=== PATIENT | male | born 1945 | race Caucasian/White ===

== ENCOUNTER 2017-08-24 13:24 | Inpatient (IN) | payer OTHER ==
[~2017-08-24] VITALS: Ht 167.6 cm; Wt 90.1 kg
[~2017-08-24 13:24] MED LIST: ALTACE10 MG PO; ALTACE2.5 MG PO; ASPIRIN325 MG PO; ASPIRIN81 M1 PO; Altace PO; CARVEDILOL25 MG PO; CHEWABLE-VITE1 EACH PO; CLOPIDOGREL75 MG PO; CODEINE-GUAIFE120 ML PO; COREG25 M1 PO; COREG6.25 M1 PO; Coreg PO; DIGITEK125 MC2 PO; EPLERENONE25 M1 PO; EPLERENONE25 MG PO; FUROSEMIDE40 MG PO; Glucophage PO; INSPRA PO; INSPRA25 MG PO; IRON325 M1 PO; K-Dur PO; LANOXIN125 MCG PO; LASIX20 MG PO; LASIX40 MG PO; LIPITOR80 MG PO; LISINOPRIL2.5 MG PO; Lanoxin,Digitek PO; Lasix PO; Lipitor PO; METAMUCIL POWD798 GM PO; METFORMIN HCL500 MG PO; MULTI VITAMIN1 EACH PO; NITROSTAT,NITR0.4 M1 SL; Nitrostat,NitroQuick SL; PROVENTIL,2.5 MG/3 M IH; SPIRIVA1 INHALATI; SPIRIVA1 INHALATI IH; TYLENOL EXTRA500 MG PO; TYLENOL REGULA325 MG PO; Tylenol Regular Stre PO; WARFARIN SODIUM1 MG PO; XARELTO10 MG PO; Xarelto PO
[2017-08-24 13:59] LABS: HEMATOCRIT 50.1 % (38.0-50.0); HEMOGLOBIN 16.2 G/DL (12.5-16.6); MCH 29.1 PG (29.0-34.0); MCHC 32.3 G/DL (30.0-36.0); MCV 90.1 FL (86-99); PLATELET COUNT 226 K/uL (156-360); RBC DIS.WIDTH-CV 17.1 % (11.8-14.6); RBC DIS.WIDTH-SD 55.5 % (39-53); RED BLOOD COUNT 5.56 M/uL (4.00-5.50); WHITE BLOOD COUNT 9.5 K/uL (4.1-10.2)
[2017-08-24 14:08] LABS: CHLORIDE 97 mEq/L (99-109); SODIUM 122 mEq/L (136-147)
[2017-08-24 14:10] LABS: GLUCOSE 96 mg/dL (70-99)
[2017-08-24 14:14] LABS: CREATININE 1.7 mg/dL (0.6-1.3); GFR ESTIMATE (CALCULATED) 42 mL/min/ (58.99-99999)
[2017-08-24 14:15] LABS: UREA NITROGEN (BUN) 44 mg/dL (9-23)
[2017-08-24 14:20] LABS: POTASSIUM 6.6 mEq/L (3.7-5.4); TROP-I INTERPRETATION NEGATIVE; TROPONIN-I 0.02 ng/mL (0.0-0.30)
[2017-08-24 17:14] LABS: CHLORIDE 98 mEq/L (99-109); SODIUM 122 mEq/L (136-147)
[2017-08-24 17:19] LABS: CREATININE 1.5 mg/dL (0.6-1.3); GFR ESTIMATE (CALCULATED) 49 mL/min/ (58.99-99999)
[2017-08-24 17:20] LABS: UREA NITROGEN (BUN) 44 mg/dL (9-23)
[2017-08-24 17:32] LABS: GLUCOSE 50 mg/dL (70-99); POTASSIUM 6.6 mEq/L (3.7-5.4)
[2017-08-24] MEDS ORDERED: MILK OF MAGN PO (18:45)
[2017-08-24] MEDS ORDERED: TYLENOL ARTHRI650 MG PO (18:46)
[2017-08-24 21:25] VITALS: BP 94/55
[2017-08-24 22:01] LABS: CHLORIDE 101 MEQ/L (99-109); POTASSIUM 5.5 MEQ/L (3.7-5.4); SODIUM 124 MEQ/L (136-147)
[2017-08-24 22:06] LABS: CREATININE 1.6 MG/DL (0.6-1.3); GFR ESTIMATE (CALCULATED) 46 mL/min/ (58.99-99999); GLUCOSE 90 mg/dL (70-99); UREA NITROGEN (BUN) 43 mg/dL (9-23)
[2017-08-24 22:53] LABS: INTER. NORMALIZED RATIO 2.3
[2017-08-25] VITALS (7 sets, daily range): BP systolic 78–100; BP diastolic 48–59
[2017-08-25 08:50] LABS: ALBUMIN 2.4 G/DL (3.2-4.8); CHLORIDE 100 MEQ/L (99-109); CREATININE 1.4 MG/DL (0.6-1.3); GFR ESTIMATE (CALCULATED) 53 mL/min/ (58.99-99999); GLUCOSE 85 mg/dL (70-99); PHOSPHORUS 5.2 mg/dL (2.5-4.9); POTASSIUM 4.6 MEQ/L (3.7-5.4); SODIUM 127 MEQ/L (136-147); UREA NITROGEN (BUN) 40 mg/dL (9-23); URIC ACID 7.5 mg/dL (3.1-9.2)
[2017-08-25 16:33] LABS: HEMATOCRIT 44.9 % (38.0-50.0); HEMOGLOBIN 14.3 G/DL (12.5-16.6); MCH 29.4 PG (29.0-34.0); MCHC 31.8 G/DL (30.0-36.0); MCV 92.2 FL (86-99); PLATELET COUNT 218 K/uL (156-360); RBC DIS.WIDTH-CV 17.1 % (11.8-14.6); RBC DIS.WIDTH-SD 57.4 % (39-53); RED BLOOD COUNT 4.87 M/uL (4.00-5.50); WHITE BLOOD COUNT 7.6 K/uL (4.1-10.2)
[2017-08-25 16:56] LABS: CHLORIDE 100 MEQ/L (99-109); CREATININE 1.6 MG/DL (0.6-1.3); GFR ESTIMATE (CALCULATED) 46 mL/min/ (58.99-99999); POTASSIUM 4.6 MEQ/L (3.7-5.4); SODIUM 126 MEQ/L (136-147); UREA NITROGEN (BUN) 45 mg/dL (9-23)
[2017-08-25 16:57] LABS: GLUCOSE 113 mg/dL (70-99)
[2017-08-26 03:24] VITALS: BP 82/52
[2017-08-26 06:50] VITALS: BP 86/52
[2017-08-26 06:52] LABS: ALBUMIN 2.2 G/DL (3.2-4.8); CHLORIDE 99 MEQ/L (99-109); CREATININE 1.6 MG/DL (0.6-1.3); GFR ESTIMATE (CALCULATED) 46 mL/min/ (58.99-99999); GLUCOSE 105 mg/dL (70-99); PHOSPHORUS 5.1 mg/dL (2.5-4.9); POTASSIUM 4.1 MEQ/L (3.7-5.4); SODIUM 130 MEQ/L (136-147); UREA NITROGEN (BUN) 43 mg/dL (9-23)
[2017-08-26 07:38] LABS: INTACT PARATHYROID HORMONE 265 pg/mL (10-69)
[2017-08-26 11:45] VITALS: BP 99/57
[2017-08-26 15:45] VITALS: BP 102/55
[2017-08-26 19:21] VITALS: BP 95/58
[2017-08-27 00:17] VITALS: BP 110/66
[2017-08-27 03:50] VITALS: BP 139/66
[2017-08-27 06:13] LABS: INTER. NORMALIZED RATIO 2.1
[2017-08-27 06:39] LABS: ALBUMIN 2.5 G/DL (3.2-4.8); CHLORIDE 99 MEQ/L (99-109); CREATININE 1.3 MG/DL (0.6-1.3); GFR ESTIMATE (CALCULATED) 58 mL/min/ (58.99-99999); GLUCOSE 92 mg/dL (70-99); PHOSPHORUS 3.4 mg/dL (2.5-4.9); POTASSIUM 4.6 MEQ/L (3.7-5.4); SODIUM 129 MEQ/L (136-147); UREA NITROGEN (BUN) 35 mg/dL (9-23); URIC ACID 7.6 mg/dL (3.1-9.2)
[2017-08-27 06:45] VITALS: BP 104/57
[2017-08-27 07:28] VITALS: BP 123/70
[2017-08-27] MEDS ORDERED: DOCUSATE SODIU100 MG PO (13:39)
[2017-08-30] MEDS ORDERED: COREG3.125 M1 PO (14:15)
[2017-08-30] MEDS ORDERED: PROAIR HFA8.5 GM IH (14:16)
[2017-08-30] MEDS ORDERED: PROCTO-MED HC30 GM PR (14:17)
== END 2017-08-27 14:43 | disposition home or self-care (01) | DRG 640 ==
LOC: EME 13:24 → 5EAST 19:18 → EDOF 19:18 → ENRESERV 19:20 → 5EAST 21:13
PROVIDERS: Emergency Medicine; Family Medicine; Internal Medicine Nephrology
DX: E87.1 Hypo-osmolality and hyponatremia (principal); E87.5 Hyperkalemia; I11.0 Hypertensive heart disease with heart failure; I42.9 Cardiomyopathy, unspecified; I50.43 Acute on chronic combined systolic (congestive) and diastolic (congestive) heart failure; N17.9 Acute kidney failure, unspecified; I25.5 Ischemic cardiomyopathy; E83.39 Other disorders of phosphorus metabolism; E88.09 Other disorders of plasma-protein metabolism, not elsewhere classified; I95.9 Hypotension, unspecified; R19.7 Diarrhea, unspecified; I89.0 Lymphedema, not elsewhere classified; R18.8 Other ascites; E86.0 Dehydration; E11.9 Type 2 diabetes mellitus without complications; E78.5 Hyperlipidemia, unspecified; J44.9 Chronic obstructive pulmonary disease, unspecified; I48.91 Unspecified atrial fibrillation; I48.92 Unspecified atrial flutter; E66.9 Obesity, unspecified; I50.810 Right heart failure, unspecified; I25.10 Atherosclerotic heart disease of native coronary artery without angina pectoris; Z95.1 Presence of aortocoronary bypass graft; Z95.810 Presence of automatic (implantable) cardiac defibrillator; Z86.73 Personal history of transient ischemic attack (TIA), and cerebral infarction without residual deficits; Z87.891 Personal history of nicotine dependence; I25.2 Old myocardial infarction; Z68.32 Body mass index [BMI] 32.0-32.9, adult; Z82.49 Family history of ischemic heart disease and other diseases of the circulatory system; Z79.4 Long term (current) use of insulin; Z79.01 Long term (current) use of anticoagulants
CPT/HCPCS: 71045; 71046; 80047; 80048; 80048 91; 80069; 82306; 82948; 83880; 83935; 83970; 84300; 84484; 84550; 84999; 85027; 85610; 93005; 94640; 94640 76; 94799; 99202; 99281; 99285; C1753; J0610; J1940; J7030; J7040; J7042; J7050

== ENCOUNTER → 2017-08-30 | Outpatient (CLI) | payer OTHER ==
[~2017-08-30] MED LIST changes: +COREG3.125 M1 PO; +DOCUSATE SODIU100 MG PO; +MILK OF MAGN PO; +PROAIR HFA8.5 GM IH; +PROCTO-MED HC30 GM PR; +TYLENOL ARTHRI650 MG PO
== END | disposition home or self-care (01) ==
LOC: RAD 13:38 → EDSTATUS 14:00
PROC: 0W993ZZ Drainage of Right Pleural Cavity, Percutaneous Approach (ICD-10-PCS; principal; 2017-08-30)
DX: J90 Pleural effusion, not elsewhere classified (principal)
CPT/HCPCS: 76942

== ENCOUNTER 2017-09-06 15:50 | Inpatient (IN) | payer OTHER ==
[~2017-09-06] VITALS: Ht 167.6 cm; Wt 90.2 kg
[2017-09-06 16:59] LABS: BASOPHIL (%) 0.3 % (0-1); EOSINOPHIL (%) 1.1 % (0-5); EOSINOPHIL COUNT 0.1 K/uL (0-0.3); HEMATOCRIT 43.3 % (38.0-50.0); IMMATURE GRANULOCYTE (%) 0.5 % (0.0-0.7); LYMPHOCYTE (%) 2.8 % (15-42); LYMPHOCYTE COUNT 0.3 K/uL (1.0-2.8); MCH 29.6 PG (29.0-34.0); MCHC 32.3 G/DL (30.0-36.0); MCV 91.5 FL (86-99); MONOCYTE (%) 8.5 % (3-12); MONOCYTE COUNT 0.8 K/uL (0-0.8); NEUTROPHIL (%) 86.8 % (45-76); PLATELET COUNT 231 K/uL (156-360); RBC DIS.WIDTH-CV 16.6 % (11.8-14.6); RBC DIS.WIDTH-SD 55.5 % (39-53); RED BLOOD COUNT 4.73 M/uL (4.00-5.50); WHITE BLOOD COUNT 9.2 K/uL (4.1-10.2)
[2017-09-06 17:07] LABS: ALBUMIN 2.4 g/dL (3.2-4.8); CHLORIDE 98 mEq/L (99-109); SODIUM 127 mEq/L (136-147)
[2017-09-06 17:11] LABS: TOTAL BILIRUBIN 0.8 mg/dL (0.0-1.0)
[2017-09-06 17:13] LABS: ALKALINE PHOSPHATASE 200 IU/L (3-129); CREATININE 1.5 mg/dL (0.6-1.3); GFR ESTIMATE (CALCULATED) 49 mL/min/ (58.99-99999)
[2017-09-06 17:14] LABS: UREA NITROGEN (BUN) 48 mg/dL (9-23)
[2017-09-06 17:15] LABS: AST (GOT) 40 IU/L (2-34)
[2017-09-06 17:16] LABS: ALT (GPT) 53 IU/L (3-49)
[2017-09-06 17:34] LABS: APPEARANCE CLEAR ((CLEAR)); BILIRUBIN NEGATIVE; BLOOD NEGATIVE; COLOR YELLOW ((YELLOW)); GLUCOSE (STRIP) NEGATIVE; KETONES NEGATIVE; LEUKOCYTES NEGATIVE; NITRITE NEGATIVE; PROTEIN (STRIP) NEGATIVE; SPECIFIC GRAVITY 1.018 (1.000-1.030); UCUL ADDED? NO; UROBILINOGEN 0.2 MG/DL (0.2-1.0)
[2017-09-06 17:34] LABS: GLUCOSE 128 mg/dL (70-99)
[2017-09-06] MEDS ORDERED: FUROSEMIDE40 MG PO (19:18)
[2017-09-06] MEDS ORDERED: CARVEDILOL6.25 MG PO (19:18)
[2017-09-06] MEDS ORDERED: ATORVASTATIN CA80 MG PO (19:19)
[2017-09-06] MEDS ORDERED: DIGOX125 MCG PO (19:19)
[2017-09-06] MEDS ORDERED: MIRALAX255 GM PO (19:19)
[2017-09-06] MEDS ORDERED: WARFARIN SODIUM1 MG PO (19:24)
[2017-09-06 20:46] LABS: CHLORIDE 100 mEq/L (99-109); SODIUM 127 mEq/L (136-147)
[2017-09-06 20:48] LABS: GLUCOSE 59 mg/dL (70-99)
[2017-09-06 20:52] LABS: CREATININE 1.4 mg/dL (0.6-1.3); GFR ESTIMATE (CALCULATED) 53 mL/min/ (58.99-99999)
[2017-09-06 20:53] LABS: UREA NITROGEN (BUN) 46 mg/dL (9-23)
[2017-09-06 21:32] LABS: LACTATE DEHYDROGENASE 239 IU/L (20-246)
[2017-09-07] VITALS (7 sets, daily range): BP systolic 86–99; BP diastolic 46–57
[2017-09-07 00:21] LABS: INTER. NORMALIZED RATIO 1.7
[2017-09-07 07:01] LABS: ALBUMIN 1.9 G/DL (3.2-4.8); CHLORIDE 100 MEQ/L (99-109); CREATININE 1.4 MG/DL (0.6-1.3); GFR ESTIMATE (CALCULATED) 53 mL/min/ (58.99-99999); GLUCOSE 66 mg/dL (70-99); SODIUM 130 MEQ/L (136-147); UREA NITROGEN (BUN) 44 mg/dL (9-23)
[2017-09-07 07:02] LABS: PHOSPHORUS 5.9 mg/dL (2.5-4.9); POTASSIUM 4.3 MEQ/L (3.7-5.4)
[2017-09-07 11:31] LABS: INTER. NORMALIZED RATIO 1.8
[2017-09-08 03:30] VITALS: BP 89/55
[2017-09-08 06:14] LABS: BASOPHIL (%) 0.4 % (0-1); EOSINOPHIL (%) 2.6 % (0-5); EOSINOPHIL COUNT 0.2 K/uL (0-0.3); HEMATOCRIT 42.6 % (38.0-50.0); HEMOGLOBIN 13.5 G/DL (12.5-16.6); IMMATURE GRANULOCYTE (%) 0.4 % (0.0-0.7); LYMPHOCYTE (%) 2.7 % (15-42); LYMPHOCYTE COUNT 0.2 K/uL (1.0-2.8); MCHC 31.7 G/DL (30.0-36.0); MCV 91.6 FL (86-99); MONOCYTE (%) 8.8 % (3-12); MONOCYTE COUNT 0.6 K/uL (0-0.8); NEUTROPHIL (%) 85.1 % (45-76); NEUTROPHIL COUNT 5.9 K/uL (1.8-6.4); PLATELET COUNT 221 K/uL (156-360); RBC DIS.WIDTH-CV 16.9 % (11.8-14.6); RBC DIS.WIDTH-SD 55.8 % (39-53); RED BLOOD COUNT 4.65 M/uL (4.00-5.50); WHITE BLOOD COUNT 6.9 K/uL (4.1-10.2)
[2017-09-08 06:29] LABS: INTER. NORMALIZED RATIO 1.9
[2017-09-08 06:39] LABS: CHLORIDE 99 MEQ/L (99-109); CREATININE 1.6 MG/DL (0.6-1.3); GFR ESTIMATE (CALCULATED) 46 mL/min/ (58.99-99999); POTASSIUM 4.5 MEQ/L (3.7-5.4); SODIUM 131 MEQ/L (136-147); UREA NITROGEN (BUN) 46 mg/dL (9-23)
[2017-09-08 06:40] LABS: GLUCOSE 85 mg/dL (70-99)
[2017-09-08 08:15] VITALS: BP 82/57
[2017-09-08 12:21] VITALS: BP 102/60
[2017-09-08 13:25] LABS: PHOSPHORUS 5.4 mg/dL (2.5-4.9)
[2017-09-08 16:27] VITALS: BP 90/57
[2017-09-08] MEDS ORDERED: ERGOCALCIF50000 UNIT PO (17:53)
== END 2017-09-08 18:51 | disposition home or self-care (01) | DRG 683 ==
LOC: EME 15:50 → 3EAST 21:00 → EDOF 21:00 → ENRESERV 21:28 → 3EAST 09-07 00:07
PROVIDERS: Family Medicine; Physician Assistant
DX: N17.9 Acute kidney failure, unspecified (principal); E87.2 Acidosis; E87.5 Hyperkalemia; E87.1 Hypo-osmolality and hyponatremia; R18.8 Other ascites; I95.9 Hypotension, unspecified; I11.0 Hypertensive heart disease with heart failure; I50.810 Right heart failure, unspecified; I42.9 Cardiomyopathy, unspecified; I48.91 Unspecified atrial fibrillation; I48.92 Unspecified atrial flutter; J44.9 Chronic obstructive pulmonary disease, unspecified; E11.9 Type 2 diabetes mellitus without complications; E78.5 Hyperlipidemia, unspecified; I25.10 Atherosclerotic heart disease of native coronary artery without angina pectoris; E66.9 Obesity, unspecified; Z68.32 Body mass index [BMI] 32.0-32.9, adult; I25.2 Old myocardial infarction; Z95.1 Presence of aortocoronary bypass graft; Z95.810 Presence of automatic (implantable) cardiac defibrillator; Z79.01 Long term (current) use of anticoagulants; Z86.73 Personal history of transient ischemic attack (TIA), and cerebral infarction without residual deficits; Z87.891 Personal history of nicotine dependence
CPT/HCPCS: 36415; 76705; 80048; 80048 91; 80053; 80069; 81003; 83615; 84100; 85025; 85610; 93005; 94640; 94640 76; 94799; 99202; 99281; 99285; G0378; J7040; J7120

== ENCOUNTER 2017-10-03 08:50 | Emergency (ER) | payer OTHER ==
[~2017-10-03] VITALS: Ht 167.6 cm; Wt 89.0 kg
[~2017-10-03 08:50] MED LIST changes: +ATORVASTATIN CA80 MG PO; +CARVEDILOL6.25 MG PO; +DIGOX125 MCG PO; +ERGOCALCIF50000 UNIT PO; +MIRALAX255 GM PO
[2017-10-03 10:14] LABS: HEMATOCRIT 43.6 % (38.0-50.0); HEMOGLOBIN 14.3 G/DL (12.5-16.6); MCH 29.6 PG (29.0-34.0); MCHC 32.8 G/DL (30.0-36.0); MCV 90.3 FL (86-99); PLATELET COUNT 207 K/uL (156-360); RBC DIS.WIDTH-CV 16.9 % (11.8-14.6); RBC DIS.WIDTH-SD 55.4 % (39-53); RED BLOOD COUNT 4.83 M/uL (4.00-5.50); WHITE BLOOD COUNT 7.8 K/uL (4.1-10.2)
[2017-10-03 10:23] LABS: PTT 53.4 SEC (25-37)
[2017-10-03 11:06] VITALS: BP 00/00
== END 2017-10-03 11:08 | disposition home or self-care (01) ==
LOC: EME 08:50
PROVIDERS: Nurse Practitioner Family
DX: S91.201A Unspecified open wound of right great toe with damage to nail, initial encounter (principal); X58.XXXA Exposure to other specified factors, initial encounter; I48.91 Unspecified atrial fibrillation; Z79.01 Long term (current) use of anticoagulants; Z95.0 Presence of cardiac pacemaker; Z88.5 Allergy status to narcotic agent
CPT/HCPCS: 85027; 85610; 85730; 99281; 99283

== ENCOUNTER 2017-10-11 21:49 | Inpatient (IN) | payer OTHER ==
[~2017-10-11] VITALS: Ht 167.6 cm; Wt 93.2 kg
[2017-10-11 22:11] LABS: HEMATOCRIT 42.6 % (38.0-50.0); HEMOGLOBIN 13.6 G/DL (12.5-16.6); MCH 28.8 PG (29.0-34.0); MCHC 31.9 G/DL (30.0-36.0); MCV 90.1 FL (86-99); PLATELET COUNT 234 K/uL (156-360); RBC DIS.WIDTH-CV 16.9 % (11.8-14.6); RBC DIS.WIDTH-SD 55.9 % (39-53); RED BLOOD COUNT 4.73 M/uL (4.00-5.50); WHITE BLOOD COUNT 8.2 K/uL (4.1-10.2)
[2017-10-11 22:41] LABS: ALBUMIN 2.7 g/dL (3.2-4.8); CHLORIDE 95 mEq/L (99-109); SODIUM 121 mEq/L (136-147)
[2017-10-11 22:44] LABS: GLUCOSE 101 mg/dL (70-99)
[2017-10-11 22:46] LABS: TOTAL BILIRUBIN 0.7 mg/dL (0.0-1.0)
[2017-10-11 22:47] LABS: ALKALINE PHOSPHATASE 166 IU/L (3-129); GFR ESTIMATE (CALCULATED) 35 mL/min/ (58.99-99999)
[2017-10-11 22:48] LABS: UREA NITROGEN (BUN) 83 mg/dL (9-23)
[2017-10-11 22:49] LABS: AST (GOT) 26 IU/L (2-34)
[2017-10-11 22:50] LABS: ALT (GPT) 37 IU/L (3-49)
[2017-10-11 23:00] LABS: POTASSIUM 6.1 mEq/L (3.7-5.4)
[2017-10-12 00:08] LABS: INTER. NORMALIZED RATIO 2.8
[2017-10-12 00:11] LABS: PTT 52.6 SEC (25-37)
[2017-10-12] MEDS ORDERED: PROCTO-MED HC30 GM PR (00:59)
[2017-10-12] MEDS ORDERED: CARVEDILOL3.125 MG PO (01:09)
[2017-10-12] MEDS ORDERED: ATORVASTATIN CA80 MG PO (01:10)
[2017-10-12] MEDS ORDERED: KALEXATE454 GM PO (01:11)
[2017-10-12 01:19] LABS: APPEARANCE CLEAR ((CLEAR)); BILIRUBIN NEGATIVE; BLOOD NEGATIVE; COLOR YELLOW ((YELLOW)); GLUCOSE (STRIP) NEGATIVE; KETONES NEGATIVE; LEUKOCYTES NEGATIVE; NITRITE NEGATIVE; PROTEIN (STRIP) NEGATIVE; SPECIFIC GRAVITY 1.017 (1.000-1.030); UCUL ADDED? NO; UROBILINOGEN 0.2 MG/DL (0.2-1.0)
[2017-10-12 04:00] VITALS: BP 95/60
[2017-10-12 04:13] VITALS: BP 95/60
[2017-10-12 05:47] LABS: INTER. NORMALIZED RATIO 2.9
[2017-10-12 07:29] VITALS: BP 98/55
[2017-10-12 12:34] VITALS: BP 83/55
[2017-10-12 14:26] LABS: HEMATOCRIT 43.1 % (38.0-50.0); HEMOGLOBIN 13.6 G/DL (12.5-16.6); MCH 28.9 PG (29.0-34.0); MCHC 31.6 G/DL (30.0-36.0); MCV 91.5 FL (86-99); PLATELET COUNT 231 K/uL (156-360); RBC DIS.WIDTH-CV 17.2 % (11.8-14.6); RBC DIS.WIDTH-SD 57.3 % (39-53); RED BLOOD COUNT 4.71 M/uL (4.00-5.50); WHITE BLOOD COUNT 7.7 K/uL (4.1-10.2)
[2017-10-12 14:49] LABS: ALBUMIN 2.7 G/DL (3.2-4.8); CHLORIDE 95 MEQ/L (99-109); CREATININE 1.8 MG/DL (0.6-1.3); GFR ESTIMATE (CALCULATED) 40 mL/min/ (58.99-99999); GLUCOSE 119 mg/dL (70-99); PHOSPHORUS 5.3 mg/dL (2.5-4.9); POTASSIUM 4.7 MEQ/L (3.7-5.4); SODIUM 123 MEQ/L (136-147); UREA NITROGEN (BUN) 75 mg/dL (9-23); URIC ACID 8.9 mg/dL (3.1-9.2)
[2017-10-12 17:35] VITALS: BP 81/53
[2017-10-12 19:40] VITALS: BP 99/65
[2017-10-12 21:35] LABS: CHLORIDE 93 MEQ/L (99-109); CREATININE 1.8 MG/DL (0.6-1.3); GFR ESTIMATE (CALCULATED) 40 mL/min/ (58.99-99999); GLUCOSE 107 mg/dL (70-99); SODIUM 123 MEQ/L (136-147); UREA NITROGEN (BUN) 76 mg/dL (9-23)
[2017-10-13] VITALS (7 sets, daily range): BP systolic 70–85; BP diastolic 37–60
[2017-10-13 06:15] LABS: ALBUMIN 2.4 G/DL (3.2-4.8); CHLORIDE 94 MEQ/L (99-109); GFR ESTIMATE (CALCULATED) 35 mL/min/ (58.99-99999); GLUCOSE 101 mg/dL (70-99); PHOSPHORUS 6.7 mg/dL (2.5-4.9); POTASSIUM 5.1 MEQ/L (3.7-5.4); SODIUM 125 MEQ/L (136-147); UREA NITROGEN (BUN) 79 mg/dL (9-23); URIC ACID 9.1 mg/dL (3.1-9.2)
[2017-10-13 10:22] LABS: INTER. NORMALIZED RATIO 2.7
[2017-10-13 11:19] LABS: ANTI-HEPATITIS B CORE (TOTAL) Nonreactive
[2017-10-13 11:20] LABS: HEPATITIS B SURFACE ANTIBODY Nonreactive; HEPATITIS B SURFACE ANTIGEN Nonreactive; HEPATITIS C ANTIBODY Nonreactive
[2017-10-13 23:35] LABS: COMMENTS - BLOOD GASES C+A+; DEVICE NC; O2 FLOW 1 L/MIN; O2 SATURATION (CALCULATED) 92.7 % (95-99); PCO2 62 mm Hg (35-45); PO2 67 mm Hg (80-100); SITE RR; TOTAL RESP RATE 22 resp/min
[2017-10-13 23:36] LABS: BASE EXCESS -11 mEq/L (-3 to +3); BICARBONATE 19.2 mEq/L (22-26); METHEMOGLOBIN 0.5 % (0-1.5)
[2017-10-13 23:59] LABS: ALBUMIN > 6.4 g/dL (3.2-4.8); CHLORIDE 95 mEq/L (99-109); POTASSIUM 4.5 mEq/L (3.7-5.4); SODIUM 131 mEq/L (136-147)
[2017-10-14 00:01] LABS: GLUCOSE 90 mg/dL (70-99)
[2017-10-14 00:06] LABS: UREA NITROGEN (BUN) 78 mg/dL (9-23)
[2017-10-14 00:07] LABS: AST (GOT) 16 IU/L (2-34)
[2017-10-14 00:08] LABS: ALT (GPT) 24 IU/L (3-49)
[2017-10-14 00:09] LABS: ALKALINE PHOSPHATASE 121 IU/L (3-129); CREATININE 2.5 mg/dL (0.6-1.3); GFR ESTIMATE (CALCULATED) 27 mL/min/ (58.99-99999); TOTAL BILIRUBIN 0.9 mg/dL (0.0-1.0)
[2017-10-14 00:46] VITALS: BP 81/49
[2017-10-14 00:47] LABS: HEMATOCRIT 37.1 % (38.0-50.0); MCH 28.8 PG (29.0-34.0); MCHC 30.7 G/DL (30.0-36.0); MCV 93.7 FL (86-99); RBC DIS.WIDTH-CV 17.3 % (11.8-14.6); RBC DIS.WIDTH-SD 59.1 % (39-53); RED BLOOD COUNT 3.96 M/uL (4.00-5.50); WHITE BLOOD COUNT 6.7 K/uL (4.1-10.2)
[2017-10-14 00:51] LABS: HEMOGLOBIN 11.4 G/DL (12.5-16.6)
[2017-10-14 03:09] VITALS: BP 79/48
[2017-10-14 05:25] LABS: HEMATOCRIT 41.3 % (38.0-50.0); HEMOGLOBIN 12.5 G/DL (12.5-16.6); MCH 28.4 PG (29.0-34.0); MCHC 30.3 G/DL (30.0-36.0); MCV 93.9 FL (86-99); PLATELET COUNT 186 K/uL (156-360); RBC DIS.WIDTH-CV 17.4 % (11.8-14.6); RBC DIS.WIDTH-SD 59.8 % (39-53); WHITE BLOOD COUNT 8.4 K/uL (4.1-10.2)
[2017-10-14 05:42] LABS: INTER. NORMALIZED RATIO 2.9
[2017-10-14 06:14] LABS: ALBUMIN 3.8 G/DL (3.2-4.8); CHLORIDE 97 MEQ/L (99-109); CREATININE 2.9 MG/DL (0.6-1.3); GFR ESTIMATE (CALCULATED) 23 mL/min/ (58.99-99999); GLUCOSE 94 mg/dL (70-99); PHOSPHORUS 7.8 mg/dL (2.5-4.9); POTASSIUM 5.3 MEQ/L (3.7-5.4); SODIUM 125 MEQ/L (136-147); UREA NITROGEN (BUN) 85 mg/dL (9-23)
[2017-10-14 06:56] LABS: BASOPHIL (%) 0.3 % (0-1); EOSINOPHIL (%) 1.2 % (0-5); EOSINOPHIL COUNT 0.1 K/uL (0-0.3); IMMATURE GRANULOCYTE (%) 0.3 % (0.0-0.7); LYMPHOCYTE (%) 3.3 % (15-42); LYMPHOCYTE COUNT 0.2 K/uL (1.0-2.8); MONOCYTE (%) 9.5 % (3-12); MONOCYTE COUNT 0.6 K/uL (0-0.8); NEUTROPHIL (%) 85.4 % (45-76); NEUTROPHIL COUNT 5.7 K/uL (1.8-6.4); PLAT.SUFFICIENCY ADEQUATE
[2017-10-14 06:59] LABS: PLATELET COUNT 159 K/uL (156-360)
[2017-10-14 07:55] VITALS: BP 73/58
[2017-10-14 11:51] VITALS: BP 90/58
[2017-10-14 14:13] VITALS: BP 75/48
[2017-10-14 19:24] VITALS: BP 74/48
[2017-10-15 00:26] VITALS: BP 73/41
[2017-10-15 03:50] VITALS: BP 73/44
[2017-10-15 07:03] LABS: ALBUMIN 3.3 G/DL (3.2-4.8); CHLORIDE 96 MEQ/L (99-109); GFR ESTIMATE (CALCULATED) 15 mL/min/ (58.99-99999); PHOSPHORUS 8.7 mg/dL (2.5-4.9); POTASSIUM 5.6 MEQ/L (3.7-5.4); SODIUM 125 MEQ/L (136-147); UREA NITROGEN (BUN) 95 mg/dL (9-23)
[2017-10-15 07:04] LABS: CREATININE 4.1 MG/DL (0.6-1.3); GLUCOSE 54 mg/dL (70-99)
[2017-10-15 07:30] VITALS: BP 79/54
[2017-10-15] MEDS ORDERED: ATIVAN INTE2 MG/1 ML PO (11:33)
[2017-10-15] MEDS ORDERED: MORPHINE CON20 MG/M1 SL (11:33)
[2017-10-15 20:01] VITALS: BP 72/42
[2017-10-16 07:32] VITALS: BP 68/47
[2017-10-16] MEDS ORDERED: LEVSIN-SL0.125 MG SL (10:39)
[2017-10-16] MEDS ORDERED: DULCOLAX10 MG PR (10:39)
[2017-10-16] MEDS ORDERED: MORPHINE CON20 MG/M1 SL (11:52)
== END 2017-10-16 12:55 | disposition hospice, home (50) | DRG 441 ==
LOC: EME 21:49 → 4EAST 10-12 01:04 → EDOF 10-12 01:04 → ENRESERV 10-12 02:10 → 4EAST 10-12 03:46
PROVIDERS: Family Medicine; Hospitalist; Internal Medicine Nephrology
DX: K76.7 Hepatorenal syndrome (principal); N17.0 Acute kidney failure with tubular necrosis; E87.5 Hyperkalemia; E87.1 Hypo-osmolality and hyponatremia; J96.00 Acute respiratory failure, unspecified whether with hypoxia or hypercapnia; E87.2 Acidosis; R57.0 Cardiogenic shock; Z66 Do not resuscitate; Z51.5 Encounter for palliative care; I25.5 Ischemic cardiomyopathy; I13.0 Hypertensive heart and chronic kidney disease with heart failure and stage 1 through stage 4 chronic kidney disease, or unspecified chronic kidney disease; I50.9 Heart failure, unspecified; E11.22 Type 2 diabetes mellitus with diabetic chronic kidney disease; N18.4 Chronic kidney disease, stage 4 (severe); L89.322 Pressure ulcer of left buttock, stage 2; K74.60 Unspecified cirrhosis of liver; L89.159 Pressure ulcer of sacral region, unspecified stage; I25.10 Atherosclerotic heart disease of native coronary artery without angina pectoris; E78.5 Hyperlipidemia, unspecified; J44.9 Chronic obstructive pulmonary disease, unspecified; R18.8 Other ascites; I48.92 Unspecified atrial flutter; I48.2 Chronic atrial fibrillation; E88.09 Other disorders of plasma-protein metabolism, not elsewhere classified; K59.00 Constipation, unspecified; K64.9 Unspecified hemorrhoids; E66.9 Obesity, unspecified; I45.10 Unspecified right bundle-branch block; R33.9 Retention of urine, unspecified; Z95.1 Presence of aortocoronary bypass graft; I25.2 Old myocardial infarction; Z88.5 Allergy status to narcotic agent; Z86.73 Personal history of transient ischemic attack (TIA), and cerebral infarction without residual deficits; Z95.810 Presence of automatic (implantable) cardiac defibrillator; Z87.891 Personal history of nicotine dependence; Z79.01 Long term (current) use of anticoagulants; Z91.19 Patient's noncompliance with other medical treatment and regimen; Z68.33 Body mass index [BMI] 33.0-33.9, adult
CPT/HCPCS: 36600; 80048 91; 80053; 80069; 81003; 82140; 82533 91; 82803; 83605; 83935; 84300; 84550; 85025; 85027; 85610; 85730; 86704; 86706; 86803; 86850; 86900; 86901; 87340; 93005; 93306; 94799; 99281; 99285; J0696; J2060; J7030; J7040; P9047